=== PATIENT | male | born 1980 | race Caucasian/White ===

== ENCOUNTER 2016-12-18 17:44 | Emergency (ER) | payer OTHER ==
[~2016-12-18 17:44] MED LIST: BENTYL20 MG PO; CIPRO PO; CLINDAMYCIN HC300 MG PO; FAMOTIDINE PO; FLEXERIL PO; FLEXERIL10 MG PO; GABAPENTIN800 MG PO; HYDROCORTISONE30 G2 TOP; IRON PO; IRON SUPPLEMENT1 TAB PO; KEFLEX PO; KEFLEX500 MG PO; LISINOPRIL10 MG PO; LYRICA300 MG PO; MEDROL PO; METFORMIN HCL500 M1 PO; NAPROSYN500 MG PO; NAPROXEN PO; NEURONTIN800 MG PO; PERCOCET 10/3251 TAB PO; PERCOCET5/325 PO; TRAMADOL HCL50 M1 PO; TYLENOL #3 PO; ULTRAM PO; VICODIN 5/1 TAB 5/50 PO
== END 2016-12-18 17:45 | disposition left against medical advice (07) ==
LOC: CED 17:44
DX: R10.9 Unspecified abdominal pain (principal); R11.0 Nausea; F17.200 Nicotine dependence, unspecified, uncomplicated; I10 Essential (primary) hypertension; Z88.6 Allergy status to analgesic agent; Z88.0 Allergy status to penicillin; Z88.2 Allergy status to sulfonamides; Z91.041 Radiographic dye allergy status
CPT/HCPCS: 99283

== ENCOUNTER 2016-12-20 10:50 | Inpatient (IN) | payer OTHER ==
--- NOTE | ~2016-12-20 | PA ---
Unit #: [id number] #: [id number] Patient: MISSY HUFF [id number] [facility] [address] [place] [address] [id number] MR#: [id number] NAME: MISSY HUFF. ROOM: P266 Age: 36 Sex: M Admission Date: 12/20/2016 : 1980 Date of Assessment: 12/21/2016 Attending Physician: King Molina M.D. Admitting Physician: King Molina M.D. Primary Care Physician: Emir Malik M.D. PSYCHIATRIC ASSESSMENT IDENTIFYING INFORMATION The patient is a 36-year-old white male admitted to the [facility] after he had presented to this facility voicing positive suicidal ideation. CHIEF COMPLAINT "Same thing." INFORMANT Patient, reliability is fair. HISTORY OF PRESENT ILLNESS The patient is a 36-year-old white male well known to this physician from multiple previous admissions to this facility. He is readmitted reporting ongoing grief related to the recent of his sister in [place] and suicidal ideation. The patient was last hospitalized at this facility under similar circumstances in middle to late October of this year. He had previously been prescribed multiple medications including Neurontin, Xarelto, Zestril, Lyrica, Zofran, Flomax, Zyprexa, Vyvanse, and Tylenol No. 3. However, this physician had received notification at his office that the patient has been using multiple pharmacies and providers. There has been suspicion of this in the past. When seen today, the patient continues to express suicidal ideation. He expresses some displeasure at the discontinuation of Vyvanse and Tylenol No. 3, and other potentially abusable medications. For more complete history of present illness, please refer to previously dictated notes. PAST PSYCHIATRIC HISTORY Reviewed, no changes. PAST MEDICAL HISTORY Reviewed, no changes. MEDICATIONS Gabapentin, Zofran, hydrocodone, Lyrica, Vyvanse, lisinopril, metformin, and Flomax. ALLERGIES IV dye, penicillin, sulfa, ibuprofen, trimethoprim, and sulfa. FAMILY HISTORY Reviewed, no changes. SOCIAL HISTORY Unit #: [id number] #: [id number] Patient: MISSY HUFF Reviewed, no changes. MENTAL STATUS EXAMINATION Examination at this time reveals the patient to be an obese white male appearing stated age. She is in no apparent physical distress at the time of examination. He is awake, alert, and oriented in all spheres. His mood is mildly dysphoric, his affect congruent. Speech is generally well coherent. There are no gross deficits in memory or cognition noted. Intelligence is judged to be in the average range based on fund of knowledge. The patient is generally cooperative during interview. He is currently endorsing positive suicidal ideation. He denies homicidal ideation. He denies any psychotic symptoms. His judgment and insight appeared to be reasonably intact. ASSETS AND LIABILITIES The patient's assets are to be assessed. Liabilities: Characterologic issues. DIAGNOSTIC IMPRESSION 1. Major depressive disorder, recurrent, moderate. 2. Chronic pain. 3. Rule out opioid use disorder. 4. Rule out psychostimulant use disorder. TREATMENT PLAN The patient remains hospitalized for safety and stabilization given concerns regarding the patient's abuse of psychoactive substances. I will not restart Vyvanse or Tylenol No. 3. The patient will participate in appropriate order of milieu activities, and suicidal precautions remains in place. ESTIMATED LENGTH OF STAY 3 to 5 days. Dictated by... Rodney Proctor TD: 12/21/2016 13:03 JOB #: [id number] PSYCHIATRIC ASSESSMENT X King Molina MD X PSYCHIATRIC ASSESSMENT
--- NOTE | ~2016-12-20 | DS ---
Unit #: [id number] #: [id number] Patient: MISSY HUFF [id number] [facility] [address] [place] [address] [id number] MR#: [id number] NAME: MISSY HUFF. ROOM: P266 Age: 36 Sex: M Admission Date: 12/20/2016 : 1980 Discharge Date: 12/22/2016 Attending Physician: King Molina M.D. Primary Care Physician: Emir aMlik M.D. DISCHARGE SUMMARY REASON FOR ADMISSION The patient is a 36-year-old white male, admitted with voicing depressed mood related to grief, related to his sister's recent . HOSPITAL COURSE The patient was admitted to the 2-[facility] unit and continued on previously prescribed Prozac and Lyrica. Other medications were not continued. The patient's stay in the hospital was a brief and uneventful one. He requested discharge on 12/22/2016 and it was so ordered. At no time did he appear to be particularly dysphoric during his stay in the hospital and nor did he exhibit any signs of opioid or other substance withdrawal. FINAL DIAGNOSES Dysthymic disorder and personality disorder, unspecified. DISPOSITION ON DISCHARGE The patient is discharged on the following medications: Prozac 40 mg daily for depression and Lyrica 300 mg t.i.d. for chronic pain. DISCHARGE INSTRUCTIONS No dietary or physical restrictions were placed upon the patient at the time of discharge. FOLLOWUP Followup will take place through the auspices of community mental health resources. PROGNOSIS The patient's prognosis remains guarded, given his significant axis to pathology. Dictated by... King Molina M.D. CB/david TD: 12/23/2016 04:14 JOB #: [id number] Unit #: [id number] #: [id number] Patient: MISSY HUFF DISCHARGE SUMMARY X King Molina MD X DISCHARGE SUMMARY
--- NOTE | ~2016-12-20 | HP ---
Unit #: [id number] #: [id number] Patient: MISSY HUFF [id number] [place] [address] [id number] I MR#: [id number] NAME: MISSY HUFF. ROOM: P266 Age: 36 Sex: M Admission Date: 12/20/2016 : 1980 Attending Physician: King Molina M.D. Admitting Physician: King Molina M.D. Primary Care Physician: Emir Malik M.D. HISTORY AND PHYSICAL HISTORY OF PRESENT ILLNESS Missy is a 36 year old admitted to 2 [facility] reporting depression and verbalizing wanting to hurt himself. He has had numerous admissions to this facility for treatment of the same. PAST MEDICAL HISTORY 1. History of malingering. 2. History of drug seeking. 3. Long history of polysubstance abuse. 4. Obesity. 5. High blood pressure. 6. Diabetes mellitus. 7. History of anemia. 8. History of recurrent DVTs. PAST SURGICAL HISTORY 1. Multiple lithotripsies with stents. 2. Multiple eye surgeries. 3. Bilateral TM reconstructions. 4. Placement of green field filter. 5. Fractured right arm and right leg with ORIF. ALLERGIES Flexeril, Cipro, NSAIDS, penicillin, ibuprofen. SOCIAL HISTORY He smokes, drinks alcohol and admits to illicit drug use but denies anything currently. He is known to frequent emergency rooms and multiple pharmacies. FAMILY HISTORY Medically noncontributory. REVIEW OF SYSTEMS CONSTITUTIONAL: No fever or chills. HEENT: Denies any sore throat, ear pain or runny nose. CARDIOVASCULAR: Denies chest pain, irregular heart rhythm or palpitations. CHEST: Denies shortness of breath or cough. No hemoptysis. GASTROINTESTINAL: Denies nausea, vomiting, diarrhea or chronic constipation. ENDOCRINE: Denies history of increased thirst or urination. No recent significant weight loss or gain. Unit #: [id number] #: [id number] Patient: MISSY HUFF GENITOURINARY: Denies dysuria, frequency, or hematuria. SKIN: Denies any rashes. HEMATOLOGIC: Denies history of increased bleeding or bruising. MUSCULOSKELETAL: Denies any hot, swollen joints. No generalized muscle pain. NEUROLOGIC: Denies problems with vision or speech. No frequent, severe headaches. No numbness, tingling or weakness in any extremities. Denies loss of bladder or bowel control. CURRENT MEDICATIONS 1. Neurontin 800 mg q.i.d. 2. Zofran p.r.n. 3. Milk of Magnesia p.r.n. 4. Maalox p.r.n. 5. Tylenol p.r.n. 6. Nicotine patch 14 mg daily PHYSICAL EXAMINATION GENERAL: Alert, morbidly obese, in no apparent distress. VITAL SIGNS: Blood pressure 150/90, heart rate 80, respirations 16, temperature 98.6. WEIGHT: 230 pounds. HEIGHT: 5'8". SKIN: Warm and dry without rash or lesion. HEENT: Normocephalic. TMs not viewed. Oral and nasal passages clear. Conjunctivae clear. Pupils equal, round and reactive to light and accommodation. Extraocular movements intact. NECK: Supple without lymphadenopathy or thyromegaly. HEART: Regular rate and rhythm without murmur. LUNGS: Clear. ABDOMEN: Soft, nontender. : Not done. EXTREMITIES: No evidence of cyanosis, clubbing or edema. Moves all extremities without focal deficit. NEUROLOGICAL: Grossly within normal limits. Cranial Nerves: II: Visual summers are intact. III, IV AND : Extraocular movements are intact. Pupils are equal, round and reactive to light. V: Facial sensation is grossly normal. VII: Facial movements and expression are normal. VIII: Auditory acuity grossly intact. IX, X: Uvula is midline. Phonation is normal. XI: Patient shrugs shoulders and turns head normally. XII: Tongue protrudes in the midline. Sensory and Motor Function: Sensory and motor sensation is grossly normal. Motor: moves all extremities well. Coordination: Gait is normal. Deep Tendon Reflexes: Intact. IMPRESSION Psychiatric admission RECOMMENDATIONS PSYCHIATRIC: Per psychiatrist. MEDICAL: I see no contraindications to participating in facility's activities. MEDICAL PROGNOSIS Good. Unit #: [id number] #: [id number] Patient: MISSY HUFF MEDICAL CONDITION Stable. Dictated by... Rahel Milligan P.A.-C. for Rodney Coronel/jana TD: 12/21/2016 04:50 JOB #: [id number] HISTORY AND PHYSICAL X Rahel Milligan HISTORY AND PHYSICAL
== END 2016-12-22 15:10 | disposition home or self-care (01) | DRG 881 ==
LOC: POF 10:50 → P2L 14:19
DX: F34.1 Dysthymic disorder (principal); E11.9 Type 2 diabetes mellitus without complications; R45.851 Suicidal ideations; I10 Essential (primary) hypertension; E66.9 Obesity, unspecified; Z88.0 Allergy status to penicillin; Z88.8 Allergy status to other drugs, medicaments and biological substances; F17.210 Nicotine dependence, cigarettes, uncomplicated; F60.9 Personality disorder, unspecified; F32.9 Major depressive disorder, single episode, unspecified; I25.2 Old myocardial infarction; Z87.442 Personal history of urinary calculi; Z86.711 Personal history of pulmonary embolism; Z79.899 Other long term (current) drug therapy; Z88.1 Allergy status to other antibiotic agents
CPT/HCPCS: 82947

== ENCOUNTER 2017-03-02 19:00 | Inpatient (IN) | payer OTHER ==
--- NOTE | ~2017-03-02 | PA ---
Unit #: [id number] #: [id number] Patient: MISSY HUFF [id number] [place] [address] [id number] MR#: [id number] NAME: MISSY HUFF. ROOM: P252 Age: 37 Sex: M Admission Date: 03/02/2017 : 1980 Date of Assessment: 03/03/2017 Attending Physician: King Molina M.D. Admitting Physician: King Molina M.D. Primary Care Physician: Emir Malik M.D. PSYCHIATRIC ASSESSMENT IDENTIFYING INFORMATION The patient is a 37-year-old single white male well known to this physician. He is admitted complaining of suicidal ideation. CHIEF COMPLAINT "All my family is gone." INFORMANT(S) Patient, reliability is fair. HISTORY OF PRESENT ILLNESS The patient is a 37-year-old white male well known to this facility. He is admitted voicing positive suicidal ideation. The patient reports that he has been feeling hopeless secondary to the of several family members stating that he feels "alone." The patient reports that he is not currently followed by psychiatrist, but that his psychotropic medications, specifically citalopram and Vyvanse and prescribed by his primary care physician. The patient continues to endorse positive suicidal ideation when seen today. He is denying any homicidal ideation. He denies any recent changes in sleep or appetite. For more complete history of present illness, please refer to previously dictated notes. PAST PSYCHIATRIC HISTORY Reviewed, no changes. PAST MEDICAL HISTORY Reviewed, no changes. MEDICATION(S) Lyrica, citalopram, Xarelto, and Vyvanse. ALLERGIES IV dye, NSAIDs, penicillin, sulfa, ibuprofen, trimethoprim/ sulfamethoxazole. FAMILY HISTORY Reviewed, no changes. SOCIAL HISTORY Reviewed, no changes. MENTAL STATUS EXAMINATION Examination at this time reveals the patient to be an obese white male Unit #: [id number] #: [id number] Patient: MISSY HUFF appearing stated age. She is in no apparent physical distress at the time of examination. He is awake, alert, and oriented in all spheres. His mood is dysphoric, his affect blunted. Speech is generally well-coherent. There are no gross deficits in memory or cognition noted. Intelligence is judged to be in the average range based on fund of knowledge. The patient is cooperative throughout the interview. He is currently endorsing positive suicidal ideation. He denies homicidal ideation. He denies any psychotic symptoms. His judgment and insight appear to be reasonably intact. ASSETS AND LIABILITIES The patient's assets: Motivation for change. Liabilities: Lack of resources. DIAGNOSTIC IMPRESSION 1. Dysthymic disorder. 2. Personality disorder, unspecified. 3. Chronic pain per patient history. TREATMENT PLAN The patient remains hospitalized for safety and stabilization. We will continue previously prescribed medications increasing his dose of citalopram to 40 mg daily. Suicide precautions remain in place. ESTIMATED LENGTH OF STAY 5 to 7 days. The followup will take place through the auspices of community mental health agencies. Dictated by... King Molina M.D. JORGE/jah TD: 03/03/2017 13:19 JOB #: [id number] PSYCHIATRIC ASSESSMENT Page 1 of 1 X King Molina MD X PSYCHIATRIC ASSESSMENT
--- NOTE | ~2017-03-02 | PN ---
Unit #: [id number] #: [id number] Patient: MISSY HUFF [id number] [facility] [address] [place] [address] [id number] MR#: [id number] NAME: MISSY HUFF ROOM: P252 Age: 37 Sex: M Admission Date: 03/02/2017 : 1980 Attending Physician: King Molina M.D. Admitting Physician: King Molina M.D. Primary Care Physician: Rodney Rich PROGRESS NOTES DATE 03/04/2017 DISCUSSION The patient is sleeping soundly today. Staff reports that he is continuing to endorse positive suicidal ideation. He did sleep well with initiation of trazodone last evening. Dictated by... King Molina M.D. CB/arianna TD: 03/04/2017 16:03 JOB #: [id number] JOSHUA PROGRESS NOTES Page 1 of 1 X King Molina MD X PROGRESS NOTE
--- NOTE | ~2017-03-02 | DS ---
Unit #: [id number] #: [id number] Patient: MISSY HUFF [id number] [place] [address] [id number] MR#: [id number] NAME: MISSY HUFF. ROOM: P252 Age: 37 Sex: M Admission Date: 03/02/2017 : 1980 Discharge Date: 03/05/2017 Attending Physician: King Molina M.D. Primary Care Physician: Emir Malik M.D. DISCHARGE SUMMARY REASON FOR ADMISSION The patient is a 37-year-old, single, white male, admitted to the -[facility] unit complaining of depressed mood and suicidal ideation. HOSPITAL COURSE The patient was admitted to the 2-[facility] unit and continued on previously prescribed medications. Citalopram is increased from 20 to 40 mg daily. No other medications were continued. The patient showed slow, but steady improvement. He requested trazodone for sleep and slept well with this medication. By 03/05/2017, the patient requested discharge and it was so ordered. He at that time denied any suicidal thinking. FINAL DIAGNOSES Dysthymic disorder; personality disorder, unspecified with borderline and antisocial traits; chronic pain. DISPOSITION ON DISCHARGE The patient is discharged on the following medications: Lyrica 300 mg b.i.d. for chronic pain, Xarelto 20 mg daily for anticoagulation, Celexa 40 mg daily for depression, and Desyrel 100 mg at h.s. p.r.n. insomnia. DISCHARGE INSTRUCTIONS No dietary or physical restrictions were placed upon the patient at the time of discharge. FOLLOWUP Followup takes place through the auspices of community mental health resources. PROGNOSIS His prognosis is considered fair. Dictated by... King Molina M.D. CB/david TD: 03/05/2017 19:53 JOB #: [id number] Unit #: [id number] #: [id number] Patient: MISSY HUFF DISCHARGE SUMMARY Page 1 of 1 X King Molina MD X DISCHARGE SUMMARY
--- NOTE | ~2017-03-02 | HP ---
Unit #: [id number] #: [id number] Patient: MISSY HUFF [id number] [place] [address] [id number] MR#: [id number] NAME: MISSY HUFF. ROOM: P252 Age: 37 Sex: M Admission Date: 03/02/2017 : 1980 Attending Physician: King Molina M.D. Admitting Physician: King Molina M.D. Primary Care Physician: Emir Malik M.D. HISTORY AND PHYSICAL HISTORY OF PRESENT ILLNESS Missy is a 37-year-old male admitted on 03/02/[address] [place] [address] for suicidal ideation. PAST MEDICAL HISTORY 1. Obesity. 2. Stroke, 2016. PAST SURGICAL HISTORY Right arm surgical repair after a fracture. ALLERGIES NSAIDs, IV dye, penicillin, sulfa, trimethoprim. SOCIAL HISTORY Smokes 1 pack of cigarettes daily. Occasional alcohol use. No illegal drug use. He is currently single and living alone. FAMILY HISTORY Noncontributory. REVIEW OF SYSTEMS CONSTITUTIONAL: No fever or chills. HEENT: Denies any sore throat, ear pain or runny nose. CARDIOVASCULAR: Denies chest pain, irregular heart rhythm or palpitations. CHEST: Denies shortness of breath or cough. No hemoptysis. GASTROINTESTINAL: Denies nausea, vomiting, diarrhea or chronic constipation. ENDOCRINE: Denies history of increased thirst or urination. No recent significant weight loss or gain. GENITOURINARY: Denies dysuria, frequency, or hematuria. SKIN: Denies any rashes. HEMATOLOGIC: Denies history of increased bleeding or bruising. MUSCULOSKELETAL: Denies any hot, swollen joints. No generalized muscle pain. NEUROLOGIC: Denies problems with vision or speech. No frequent, severe headaches. No numbness, tingling or weakness in any extremities. Denies loss of bladder or bowel control. CURRENT MEDICATIONS 1. Lyrica. 2. Citalopram. 3. Xarelto. Unit #: [id number] #: [id number] Patient: MISSY HUFF 4. Vyvanse. PHYSICAL EXAMINATION GENERAL: Alert, oriented, in no acute distress. VITAL SIGNS: Blood pressure 152/100, heart rate 75, temperature 97.7. HEIGHT: 5 feet 8. WEIGHT: 250 pounds. SKIN: Warm and dry without rash or lesion. HEENT: Normocephalic. TMs not viewed. Oral and nasal passages clear. Conjunctivae clear. PERRLA. EOMs intact. NECK: Supple without lymphadenopathy or thyromegaly. HEART: Regular rate and rhythm without murmur. LUNGS: Clear. ABDOMEN: Soft, nontender, without masses or hepatosplenomegaly. : Not done. EXTREMITIES: No evidence of cyanosis, clubbing or edema. Moves all without focal deficit. NEUROLOGICAL: Grossly within normal limits. Cranial Nerves: II: Visual summers are intact. III, IV AND : Extraocular movements are intact. Pupils are equal, round and reactive to light. V: Facial sensation is grossly normal. VII: Facial movements and expression are normal. VIII: Auditory acuity grossly intact. IX, X: Uvula is midline. Phonation is normal. XI: Patient shrugs shoulders and turns head normally. XII: Tongue protrudes in the midline. Sensory and Motor Function: Sensory and motor sensation is grossly normal. Motor: moves all extremities well. Coordination: Gait is normal. Deep Tendon Reflexes: Intact. IMPRESSION 1. Psychiatric admission. 2. Stroke, 2016. 3. Obesity. RECOMMENDATIONS PSYCHIATRIC: Per psychiatrist. MEDICAL: No contraindications to participate in facility's activities. MEDICAL PROGNOSIS Good. MEDICAL CONDITION Stable. Dictated by..Alba Louise/arianna TD: 03/03/2017 23:21 JOB #: [id number] Unit #: [id number] #: [id number] Patient: MISSY HUFF HISTORY AND PHYSICAL Page 1 of 1 X AB MADRID APRN HISTORY AND PHYSICAL
[2017-03-03 09:35] LABS: BASOPHIL# 0.1 X10e3 (0-0.3); BASOPHIL% 0.8 % (0-2.5); EOSINOPHIL# 0.4 X10e3 (0-0.7); EOSINOPHIL% 5.4 % (0.0-7.0); HEMATOCRIT 44.6 % (38.0-50.0); HEMOGLOBIN 14.5 gm/dL (13.0-16.0); LYMPHOCYTE# 2.7 X10e3 (1.0-3.5); LYMPHOCYTE% 40.2 % (17.0-45.0); MEAN CELL VOLUME 88.4 FL (83-96); MEAN CORPUSCULAR HEMOGLOBIN 28.8 PG (28-34); MEAN CORPUSCULAR HGB CONC 32.6 g/dL (30-36); MONOCYTE# 0.7 X10e3 (0-1.0); MONOCYTE% 10.1 % (3.0-12.0); NEUTROPHIL# 2.9 X10e3 (1.5-7.1); NEUTROPHIL% 43.5 % (40-75); PLATELET COUNT 171 X10e3 (140-420); RED BLOOD COUNT 5.05 X10e (3.90-5.60); RED CELL DISTRIBUTION WIDTH 15.7 % (11.0-15.5); WHITE BLOOD COUNT 6.7 X10e3 (4.0-10.5)
[2017-03-03 09:42] LABS: DIFF IND NO
[2017-03-03 09:59] LABS: ALBUMIN SERUM 3.6 g/dL (3.5-5.0); BILIRUBIN,TOTAL 0.5 mg/dL (0.2-2.0); BUN/CREATININE RATIO 17.5; CALCIUM SERUM 8.7 mg/dL (8.4-10.2); CREATININE SERUM 0.8 mg/dL (0.6-1.4); GLOM FILT RATE Estimated 115.8 mL/min (>60); POTASSIUM 4.6 mmol/L (3.5-5.1)
[2017-03-04 14:36] LABS: URINE APPEARANCE CLEAR; URINE BILIRUBIN NEG (NEG); URINE BLOOD NEG (NEG); URINE COLOR YELLOW; URINE GLUCOSE NEG (NEG); URINE KETONE NEG (NEG); URINE LEUKOCYTE ESTERASE NEG (NEG); URINE NITRATE NEG (NEG); URINE PH 7.5 (5-8); URINE PROTEIN NEG (NEG); URINE SPECIFIC GRAVITY 1.003 (1.003-1.035); URINE UROBILINOGEN 0.2 MG/DL (NEG)
[2017-03-04 14:58] LABS: AMPHETAMINE NEG (NEG); BARBITURATES NEG (NEG); BENZODIAZEPINES NEG (NEG); COCAINE NEG (NEG); MARIJUANA NEG (NEG); OPIATES NEG (NEG); TRICYCLIC ANTIDEPRESSANTS NEG (NEG); U METHADONE NEG (NEG)
== END 2017-03-05 14:45 | disposition home or self-care (01) | DRG 881 ==
LOC: P2L 22:39
PROVIDERS: Specialist
DX: F34.1 Dysthymic disorder (principal); R45.851 Suicidal ideations; F60.9 Personality disorder, unspecified; G89.29 Other chronic pain; Z79.01 Long term (current) use of anticoagulants; Z86.73 Personal history of transient ischemic attack (TIA), and cerebral infarction without residual deficits; E66.9 Obesity, unspecified; F60.3 Borderline personality disorder; F60.2 Antisocial personality disorder
CPT/HCPCS: 80053; 80307; 81003; 85025

== ENCOUNTER 2017-04-10 15:00 | Inpatient (IN) | payer OTHER ==
--- NOTE | ~2017-04-10 | DS ---
Unit #: [id number] #: [id number] Patient: MISSY HUFF [id number] [place] [address] [id number] I MR#: [id number] NAME: MISSY HUFF. ROOM: P263 Age: 37 Sex: M Admission Date: 04/10/2017 : 1980 Discharge Date: 04/11/2017 Attending Physician: King Molina M.D. Primary Care Physician: Emir Malik M.D. DISCHARGE SUMMARY REASON FOR ADMISSION The patient is a 37-year-old white male, admitted after he had voiced positive suicidal ideation with a plan to jump off the bridge. HOSPITAL COURSE The patient was admitted to the 2-[facility] unit and placed on suicide precautions. Home medications with the exception of Seymour were continued. On 04/11/2017, the patient stated that there had been some misunderstanding and that he would only wish to start treatment in our intensive outpatient program at the time of his presentation here yesterday. He requested discharge and was not felt to meet criteria for involuntary hospitalization. Discharge was ordered. FINAL DIAGNOSES Dysthymic disorder; chronic pain; rule out malingering; benign prostatic hypertrophy; history of deep venous thrombosis. DISPOSITION ON DISCHARGE The patient is discharged on the following medications: Desyrel 100 mg at h.s. p.r.n. insomnia, Celexa 40 mg daily for depression, Xarelto 20 mg daily for anticoagulation, Lyrica 300 mg b.i.d. for chronic pain, Flomax 0.4 mg daily for benign prostatic hypertrophy, Zofran 8 mg q.8 hours p.r.n. nausea and vomiting, and Seymour 7.5/325 one tablet q.h.s. p.r.n. pain. DISCHARGE INSTRUCTIONS No dietary or physical restrictions were placed upon the patient at the time of discharge. FOLLOWUP Followup will take place through the auspices of community mental health resources. PROGNOSIS The patient's prognosis is considered fair. Dictated by... King Molina M.D. JORGE/david TD: 04/11/2017 15:18 Unit #: [id number] #: [id number] Patient: MISSY HUFF JOB #: [id number] DISCHARGE SUMMARY Page 1 of 1 X King Molina MD X DISCHARGE SUMMARY
--- NOTE | ~2017-04-10 | HP ---
Unit #: [id number] #: [id number] Patient: MISSY HUFF [id number] [place] [address] [id number] MR#: [id number] NAME: MISSY HUFF. ROOM: P263 Age: 37 Sex: M Admission Date: 04/10/2017 : 1980 Attending Physician: King Molina M.D. Admitting Physician: King Molina M.D. Primary Care Physician: Emir Malik M.D. HISTORY AND PHYSICAL HISTORY OF PRESENT ILLNESS Missy is a 37 year old admitted to [address] [place] [address] with depression and verbalizing wanting to hurt himself. He has had numerous admissions to this facility for the same. PAST MEDICAL HISTORY 1. History of malingering 2. History of drug seeking 3. Long history of polysubstance abuse 4. Obesity 5. High blood pressure 6. Diabetes mellitus 7. History of anemia 8. History of recurrent DTVs 9. History of kidney stones PAST SURGICAL HISTORY 1. Multiple lithotripsies with stents. 2. Multiple eye surgeries. 3. Bilateral TM reconstruction. 4. Placement of green field filter. 5. Fractured right arm and right leg with ORIF. ALLERGIES Flexeril, Cipro, NSAIDS, penicillin, ibuprofen. SOCIAL HISTORY He smokes, drinks alcohol and has a history of illicit drug use. FAMILY HISTORY Medically noncontributory. REVIEW OF SYSTEMS CONSTITUTIONAL: No fever or chills. HEENT: Denies any sore throat, ear pain or runny nose. CARDIOVASCULAR: Denies chest pain, irregular heart rhythm or palpitations. CHEST: Denies shortness of breath or cough. No hemoptysis. GASTROINTESTINAL: Denies nausea, vomiting, diarrhea or chronic constipation. ENDOCRINE: Denies history of increased thirst or urination. No recent significant weight loss or gain. GENITOURINARY: Denies dysuria, frequency, or hematuria. Unit #: [id number] #: [id number] Patient: MISSY HUFF SKIN: Denies any rashes. HEMATOLOGIC: Denies history of increased bleeding or bruising. MUSCULOSKELETAL: Denies any hot, swollen joints. No generalized muscle pain. NEUROLOGIC: Denies problems with vision or speech. No frequent, severe headaches. No numbness, tingling or weakness in any extremities. Denies loss of bladder or bowel control. CURRENT MEDICATIONS No orders received at the time of this dictation PHYSICAL EXAMINATION GENERAL: Alert, morbidly obese, in no apparent distress. VITAL SIGNS: Blood pressure 130/70, heart rate 80, respirations 16, temperature 98.6. WEIGHT: 230 pounds. HEIGHT: 5'8". SKIN: He has multiple circular dry flat areas along his right leg. The center is clear. The edges are red. HEENT: Normocephalic. TMs not viewed. Oral and nasal passages clear. Conjunctivae clear. Pupils equal, round and reactive to light and accommodation. Extraocular movements intact. NECK: Supple without lymphadenopathy or thyromegaly. HEART: Regular rate and rhythm without murmur. LUNGS: Clear. ABDOMEN: Soft, nontender. : Not done. EXTREMITIES: No evidence of cyanosis, clubbing or edema. Moves all extremities without focal deficit. NEUROLOGICAL: Grossly within normal limits. Cranial Nerves: II: Visual summers are intact. III, IV AND : Extraocular movements are intact. Pupils are equal, round and reactive to light. V: Facial sensation is grossly normal. VII: Facial movements and expression are normal. VIII: Auditory acuity grossly intact. IX, X: Uvula is midline. Phonation is normal. XI: Patient shrugs shoulders and turns head normally. XII: Tongue protrudes in the midline. Sensory and Motor Function: Sensory and motor sensation is grossly normal. Motor: moves all extremities well. Coordination: Gait is normal. Deep Tendon Reflexes: Intact. IMPRESSION 1. Psychiatric admission 2. Rash, appears to be fungal. 3. Missy tells us that he has seen his doctor on more than occasion for treatment of this. RECOMMENDATIONS PSYCHIATRIC: Per psychiatrist. MEDICAL: 1. I see no contraindications to participating in facility's activities. 2. He can follow up with PCP concerning the rash. MEDICAL PROGNOSIS Good. Unit #: [id number] #: [id number] Patient: MISSY HUFF MEDICAL CONDITION Stable. Dictated by... Rahel Milligan P.A.-C. for Rodney Coronel/jana TD: 04/11/2017 06:53 JOB #: [id number] HISTORY AND PHYSICAL Page 1 of 1 X Rahel Milligan HISTORY AND PHYSICAL
--- NOTE | ~2017-04-10 | PA ---
Unit #: [id number] #: [id number] Patient: MISSY HUFF [id number] [facility] [address] [place] [address] [id number] MR#: [id number] NAME: MISSY HUFF ROOM: P263 Age: 37 Sex: M Admission Date: 04/10/2017 : 1980 Date of Assessment: 04/11/2017 Attending Physician: King Molina M.D. Admitting Physician: King Molina M.D. Primary Care Physician: Emir Malik M.D. PSYCHIATRIC ASSESSMENT IDENTIFYING INFORMATION The patient is a 37-year-old single white male, admitted after he had presented to this facility voicing suicidal ideation. INFORMANT(S) Patient. RELIABILITY Patient reliability is fair. CHIEF COMPLAINT "I just wanted to do outpatient." HISTORY OF PRESENT ILLNESS The patient is a 37-year-old white male, well known to this physician from multiple previous admissions to this facility. He does have a history of some possible malingering as well as opioid abuse. The patient had reported to this facility yesterday reporting that he was having suicidal thoughts with plan to jump off the bridge secondary to multiple recent losses. It is the patient's claim that all three of his sister's committed suicide that his parents in a motor vehicle accident. The patient had reported that Father's Day had been a trigger to these thoughts. He is, today, denying suicidal ideation and reports to this physician that he "just wanted to do outpatient." This seems to coincide with the patient having learned that his [place] is being held at this point. For more complete history of present illness please refer to previously dictated notes. PAST PSYCHIATRIC HISTORY Reviewed and no changes. PAST MEDICAL HISTORY Reviewed and no changes. MEDICATIONS 1. [place] 2. Zofran 3. Flomax 4. Lyrica 5. Xarelto 6. Celexa 7. Desyrel Unit #: [id number] #: [id number] Patient: MISSY HUFF ALLERGIES NSAIDs, penicillin, sulfa, ibuprofen, tramadol, and trimethoprim. FAMILY HISTORY The patient is as above. SOCIAL HISTORY Reviewed and no changes. MENTAL STATUS EXAM At this time, reveals the patient to be a white male, appearing his stated age. He is in no apparent physical distress at the time of the examination. He is awake, alert, and oriented in all spheres. His mood is euthymic. His affect full-range. Speech is generally relevant and coherent. There are no gross deficits to memory or cognition noted. Intelligence is judged to be in the average range based on fund of knowledge. The patient is cooperative throughout the interview. He is currently denying suicidal or homicidal ideation, or psychotic features. Judgment and insight appear to be reasonably intact. ASSETS To be assessed. LIABILITIES Lack of resources, possible malingering. DIAGNOSTIC IMPRESSION [place] I: dysthymic disorder. [place] II: [place] III: Chronic pain per patient history. Benign prostatic hypertrophy. History of DVT. TREATMENT PLAN The patient is requesting discharge from the hospital at this time and is to begin treatment in the intensive outpatient programming. He is denying suicidal ideation, and it is the feeling of this physician that discharge is at this point warranted. Dictated by... King Molina M.D. JORGE/mindy TD: 04/12/2017 07:21 JOB #: [id number] Unit #: [id number] #: [id number] Patient: MISSY HUFF PSYCHIATRIC ASSESSMENT Page 1 of 1 X King Molina MD X PSYCHIATRIC ASSESSMENT
== END 2017-04-11 14:30 | disposition home or self-care (01) | DRG 881 ==
LOC: P2L 16:43
DX: F34.1 Dysthymic disorder (principal); E11.9 Type 2 diabetes mellitus without complications; G89.29 Other chronic pain; N40.0 Benign prostatic hyperplasia without lower urinary tract symptoms; Z86.718 Personal history of other venous thrombosis and embolism; Z88.0 Allergy status to penicillin; Z88.2 Allergy status to sulfonamides; Z88.5 Allergy status to narcotic agent; Z88.8 Allergy status to other drugs, medicaments and biological substances; Z87.442 Personal history of urinary calculi; Z88.1 Allergy status to other antibiotic agents; F17.210 Nicotine dependence, cigarettes, uncomplicated

== ENCOUNTER 2017-04-14 20:45 | Emergency (ER) | payer OTHER | END 2017-04-14 21:25 | disposition home or self-care (01) | LOC: CED 20:45 | DX: R53.1 Weakness (principal); R51 Headache; E11.9 Type 2 diabetes mellitus without complications; Z88.0 Allergy status to penicillin; Z88.2 Allergy status to sulfonamides; Z88.8 Allergy status to other drugs, medicaments and biological substances; F17.200 Nicotine dependence, unspecified, uncomplicated | CPT/HCPCS: 99283 ==

== ENCOUNTER 2017-06-11 09:42 | Emergency (ER) | payer OTHER ==
[~2017-06-11] VITALS: Ht 172.7 cm; Wt 104.3 kg
== END 2017-06-11 10:30 | disposition home or self-care (01) ==
LOC: CED 09:42
DX: Z76.0 Encounter for issue of repeat prescription (principal); I10 Essential (primary) hypertension; E11.9 Type 2 diabetes mellitus without complications; F17.210 Nicotine dependence, cigarettes, uncomplicated; Z88.0 Allergy status to penicillin; Z88.2 Allergy status to sulfonamides; Z88.8 Allergy status to other drugs, medicaments and biological substances
CPT/HCPCS: 82947; 99283